=== PATIENT | male | born 1950 | race Two or more races ===

== ENCOUNTER 2025-02-24 09:43 | Observation (INO) | payer OTHER, MEDICAID ==
[~2025-02-24] VITALS: Ht 172.7 cm; Wt 90.6 kg
--- NOTE | 2025-02-24 10:07 | ED.PDOC ---
GI ASSESSMENT HPI Comments This is a 74 year old male presenting to the ED with chief complaint of GI bleeding. Patient reports that he had a large amount of dark red blood passed after having a bowel movement this morning. Patient denies any abdominal pain, fever, chills, dizziness, N/V/D, or chest pain. Chief Complaint: GI Bleed Time Seen by MD: 10:06 Reviewed Notes: Nurses Notes, Medications, Allergies Allergies: Coded Allergies: Rofecoxib (Verified Allergy, Unknown, 02/24/25) Information Source: Patient Mode of Arrival: Ambulatory Timing: Hours Duration: Since onset Prehospital treatment: None Quality: None Vomitus: None Stool: Blood Streaked Severity: Moderate Recent: None Recent Hx of: None Pain Location: None Modifying Factors: Nothing Associated sign and symptoms: Blood in Stool Past Medical History PAST MEDICAL HISTORY: HTN Surgical History: Appendectomy Family History Family History: Reviewed,noncontributory to illness Social History Smoker: Non-Smoker Alcohol: Denies ETOH Use Drugs: Denies Drug Use Lives In: Home Constitutional: denies: chills, diaphoresis, fatigue, fever, malaise, sweats, weakness, others EENTM: denies: blurred vision, double vision, ear bleeding, ear discharge, ear drainage, ear pain, ear ringing, eye pain, eye redness, hearing loss, mouth pain, mouth swelling, nasal discharge, nose bleeding, nose congestion, nose pain, photophobia, tearing, throat pain, throat swelling, voice changes, others Respiratory: denies: cough, hemoptysis, orthopnea, SOB at rest, shortness of breath, SOB with excertion, stridor, wheezing, others Cardiovascular: denies: chest pain, dizzy spells, diaphoresis, Dyspnea on exertion, edema, irregular heart beat, left arm pain, lightheadedness, palpitations, PND, syncope, others Gastrointestinal: reports: blood streaked bowels; denies: abdomen distended, abdominal pain, constipated, diarrhea, dysphagia, difficulty swallowing, hematemesis, melena, nausea, poor appetite, poor fluid intake, rectal bleeding, rectal pain, vomiting, others Genitourinary: denies: burning, dysuria, flank pain, frequency, hematuria, incontinence, penile discharge, penile sore, pain, testicle pain, testicle swelling, urgency, others Neurological: denies: dizziness, fainting, headache, left sided numbness, left sided weakness, numbness, paresthesia, pre-existing deficit, right sided numbness, right sided weakness, seizure, speech problems, tingling, tremors, weakness, others Musculoskeletal: denies: back pain, gout, joint pain, joint swelling, muscle pain, muscle stiffness, neck pain, others Integumetry: denies: bruises, change in color, change in hair/nails, dryness, laceration, lesions, lumps, rash, wounds, others Allergic/Immunocompromised: denies: Difficulty Healing, Frequent Infections, Hives, Itching, others Hematologic/Lymphatic: denies: anemia, blood clots, easy bleeding, easy bruising, swollen glands, others Endocrine: denies: excessive hunger, excessive sweating, excessive thirst, excessive urination, flushing, intolerance to cold, intolerance to heat, unexplained weight gain, unexplained weight loss, others Psychiatric: denies: anxiety, bipolar disorder, depression, hopeless, panic disorder, schizophrenia, sleepless, suicidal, others All Other Systems: Reviewed and Negative Physical Exam General Appearance: Moderate Distress, Normal HEENT: Normal ENT Inspection, Pharynx Normal, TMs Normal Neck: Full Range of Motion, Non-Tender, Normal, Normal Inspection Respiratory: Chest Non-Tender, Lungs Clear, No Accessory Muscle Use, No Respiratory Distress, Normal Breath Sounds Cardiovascular: No Edema, No JVD, No Murmur, No Gallop, Normal Peripheral Pulses, Regular Rate/Rhythm Breast Exam: Deferred Gastrointestinal: No Organomegaly, Non Tender, No Pulsatile Mass, Normal Bowel Sounds, Soft Genitalia: Deferred Pelvic: Deferred Rectal: Deferred Extremities: No calf tenderness, Normal capillary refill, Normal inspection, Normal range of motion, Non-tender, No pedal edema Musculoskeletal : Apperance: Normal 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 Was a procedure done?: No GI differential Dx Differential Diagnosis: Constipation, Diverticular disease, Esophagitis, Gastritis/PUD, Gastroenteritis X-Ray, Labs, Meds, VS Vital Signs Date Time Temp Pulse Resp B/P (MAP) Pulse Ox O2 Delivery O2 Flow Rate FiO2 02/24/25 13:28 106 16 95 Room Air* 0 21 02/24/25 13:28 106 16 120/74 (89) 95 02/24/25 10:07 105 02/24/25 09:51 105 02/24/25 09:44 98.9 104 18 125/80 96 98.9 Lab Test 02/24/25 10:45 Range/Units White Blood Count 6.4 4.4-10.8 10^3/uL Red Blood Count 4.25 L 4.5-5.90 10^6/uL Hemoglobin 13.9 13.5-17.5 g/dL Hematocrit 39.0 L 41.0-53.0 % Mean Corpuscular Volume 91.7 80.0-100.0 fL Mean Corpuscular Hemoglobin 32.6 H 28.0-32.0 pg Mean Corpuscular Hemoglobin Concent 35.5 32.0-36.0 g/dL Red Cell Distribution Width 13.0 11.8-14.3 % Platelet Count 227 140-450 10^3/uL Mean Platelet Volume 7.9 6.9-10.8 fL Neutrophils (%) (Auto) 71.3 37.0-80.0 % Lymphocytes (%) (Auto) 18.9 10.0-50.0 % Monocytes (%) (Auto) 8.5 0.0-12.0 % Eosinophils (%) (Auto) 0.6 0.0-7.0 % Basophils (%) (Auto) 0.7 0.0-2.0 % Neutrophils # (Auto) 4.6 1.6-8.6 10 ^3/uL Lymphocytes # (Auto) 1.2 0.4-5.4 10 ^3/uL Monocytes # (Auto) 0.5 0-1.3 10 ^3/uL Eosinophils # (Auto) 0 0-0.8 10 ^3/uL Basophils # (Auto) 0 0-0.2 10 ^3/uL Nucleated Red Blood Cells 0.1 % Sodium Level 142 136-145 mmol/L Potassium Level 3.0 L 3.5-5.1 mmol/L Chloride Level 106 98-107 mmol/L Carbon Dioxide Level 27 20-31 mmol/L Anion Gap 9 5-15 Blood Urea Nitrogen 10 9-23 mg/dL Creatinine 0.76 0.700-1.30 mg/dL Glomerular Filtration Rate Calc 95 >90 mL/min BUN/Creatinine Ratio 13.2 10.0-20.0 Serum Glucose 108 H 74-106 mg/dL Calcium Level 8.9 8.7-10.4 mg/dL Troponin I High Sensitivity 5 </=54 ng/L Current Medications Medications (Trade) Dose Ordered Sig/Isabel Route Start Time Stop Time Status Last Admin Potassium Bicarbonate (Klor-Con/Ef) 50 meq ONCE ONCE PO 02/24/25 12:30 02/24/25 12:32 DC 02/24/25 13:24 Patient alert. Complaining of blood per rectum. Vitals stable. Answering all questions. Hemoglobin within normal limits. He is tachycardic. Denies use of blood thinners. Potassium low. Was given potassium. Establish intravenous access. Was given fluids. Continue monitoring. Patient was authorized to be admitted in this hospital. Time of 1ST Reevaluation: 11:05 Reevaluation 1ST: Unchanged Patient Education/Counseling: Diagnosis, Treatment Family Education/Counseling: No Family Present SEPSIS Sepsis Screen Date sepsis recognized/suspect: Feb 24, 2025 Time Sepsis recognized/suspect: 944 Recent Procedure: No On Antibiotic Therapy: No Respiratory Rate >20: No Heart Rate >90: Yes Temp<36 C (96.8 F) or >38.3 C: No SBP <90 or MAP <65 mmHG: No New Acute Mental Status Change: No Is the patient on CPAP, BIPAP,: No Physician Orders Urinalysis (02/24/25 10:29) Ct Ab Pel Wo Con-No Oral Or Iv (02/24/25 12:23) Vital Signs Date Time Temp Pulse Resp B/P (MAP) Pulse Ox O2 Delivery O2 Flow Rate FiO2 02/24/25 13:28 106 16 95 Room Air* 0 21 02/24/25 13:28 106 16 120/74 (89) 95 02/24/25 10:07 105 02/24/25 09:51 105 02/24/25 09:44 98.9 104 18 125/80 96 98.9 Laboratory Tests Test 02/24/25 10:45 White Blood Count 6.4 10^3/uL (4.4-10.8) Medications Medications Dose Ordered Sig/Isabel Route Start Time Stop Time Status Last Admin Dose Admin Potassium Bicarbonate 50 meq ONCE ONCE PO 02/24/25 12:30 02/24/25 12:32 DC 02/24/25 13:24 Departure 1 Departure Time of Disposition: 12:22 Impression: Primary Impression: GI bleed Qualified Codes: K92.2 - Gastrointestinal hemorrhage, unspecified Disposition: ADMITTED INPATIENT Admit to: Med Surg Condition: Guarded Critical Care Note Critical Care Time?: No Stability Stability form required: No Heart Score Heart Score: Heart Score Response (Comments) Value History Slightly Suspicious 0 EKG Normal 0 Age >65 2 Risk Factors >3 or Hx ASHD 2 Troponin Normal limit 0 Total 4 I personally scribed for SHAHZAD WOODSON MD ([email or web address]) on 02/24/25 at 10:07. Electronically submitted by Krystian Tovar ([email or web address]). SHAHZAD WOODSON MD Feb 24, 2025 10:07
[2025-02-24 11:21] LABS: Hematocrit 39.0 % (41.0-53.0); Hemoglobin 13.9 g/dL (13.5-17.5); Mean Corpuscular Hemoglobin 32.6 pg (28.0-32.0); Mean Corpuscular Volume 91.7 fL (80.0-100.0); Nucleated Red Blood Cells % 0.1 %
[2025-02-24 11:30] LABS: Anion Gap 9 (5-15); Carbon Dioxide 27 mmol/L (20-31); Chloride 106 mmol/L (98-107); Potassium 3.0 mmol/L (3.5-5.1); Sodium 142 mmol/L (136-145)
[2025-02-24 11:31] LABS: Calcium 8.9 mg/dL (8.7-10.4)
[2025-02-24 11:36] LABS: BUN/Creatinine Ratio 13.2 (10.0-20.0); Blood Urea Nitrogen 10 mg/dL (9-23)
[2025-02-24 11:37] LABS: Glucose 108 mg/dL (74-106)
--- NOTE | 2025-02-24 13:04 | ECG ---
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
--- NOTE | 2025-02-24 13:08 | DVH ---
Indication: gibleed Technique: CT axial images of the abdomen and pelvis are obtained without contrast. Coronal and sagit keisha reformats were obtained. Radiation Dose Information: CTDI volume is 17.2 mGy. Dose-length product is 897.86 mGy*cm Comparison: None FINDINGS: There is limited interpretation of the abdomen and pelvis without administration of intravenous contr ast. Lung bases demonstrate no pleural effusion. Adrenal glands, spleen, pancreas unremarkable in shape. Cholelithiasis. Liver unremarkable in shape . No hydronephrosis/ nephrolithiasis. Stomach is partially distended. Small bowel loops normal in caliber. Colonic diverticular disease. Mild stranding surrounding the sigmoid colon diverticula. No secondary signs for appendicitis. Abdominal aortic atherosclerotic disease. Bladder partially distended. No free pelvic fluid. No ingu inal lymphadenopathy. Moderate bilateral sacroiliac degenerative joint disease. Moderate thoracolumbar degenerative disc di sease. IMPRESSION: Limited evaluation without contrast. Mild diverticulitis of the sigmoid colon. Cholelithiasis. Atherosclerotic disease. Other findings as described
[2025-02-24] MEDS: POTASSIUM EFFERVESENT TAB 25 MEQ PO ONE (13:24)
[2025-02-24 13:28] VITALS: PULSE 106; RESP 16; O2SAT 95
[2025-02-24] MEDS ORDERED: HYDROcodone-ACET 5/325MG TAB PO PRN (14:45)
[2025-02-24] MEDS ORDERED: ACETAMINOPHEN 325 MG TAB PO PRN (14:45)
[2025-02-24] MEDS ORDERED: ONDANSETRON HCL 4 MG/2 ML VIAL IV PRN (14:45)
[2025-02-24] MEDS ORDERED: MORPHINE SULFATE INJ 2 MG/ml SYRG IV PRN (14:45)
--- NOTE | 2025-02-24 14:49 | DVHHP2 ---
Admitting Diagnosis: GI Bleed History of Present Illness 74 year old male is complaining of GI bleed that he noticed this morning after a bowel movement. While in the emergency department the patient was evaluated by the provider. Patient will be admitted for further evaluation and treatment. I discussed admission with the patient/family and is in agreement to treatment plan. Allergies: Coded Allergies: Rofecoxib (Verified Allergy, Unknown, 02/24/25) Current Medications Current Medications Medications (Trade) Dose Ordered Sig/Isabel Route PRN Reason Start Time Stop Time Status Last Admin Metronidazole 100 ml @ 100 mls/hr Q8HR IV 02/24/25 22:00 02/25/25 14:00 Levofloxacin/ Dextrose 100 ml @ 100 mls/hr DAILY IV 02/24/25 18:15 02/25/25 09:16 Review of Systems GI bleed Vital Signs Vital Signs Date Time Temp Pulse Resp B/P (MAP) Pulse Ox O2 Delivery O2 Flow Rate FiO2 02/25/25 12:05 97.4 74 17 130/75 (93) 98 97.4 02/25/25 08:00 Room Air* 0 21 Physical Exam General Appearance: alert, no distress HEENT: EOMI, PERRLA, normal external inspect of ears, no icterus, no nasal drainage Neck: no carotid bruit, no jugular venous distention (JVD), no lymphadenopathy Chest: normal thorax Respiratory: clear to auscultation, normal air movement Cardiovascular: regular rate and rhythm, no diastolic murmur, no jugular venous distention (JVD), no rub, no systolic murmur Abdominal: soft, no hepatomegaly, no mass, no splenomegaly, no tenderness Musculoskeletal: no joint tenderness, no swelling Extremities: normal pulses, no calf tenderness, no clubbing, no cyanosis, no edema Skin: no bruising, no jaundice, no rash Neurological: alert, No focal deficit SEPSIS Sepsis Screen Date sepsis recognized/suspect: Feb 24, 2025 Time Sepsis recognized/suspect: 944 Recent Procedure: No On Antibiotic Therapy: No Respiratory Rate >20: No Heart Rate >90: Yes Temp<36 C (96.8 F) or >38.3 C: No SBP <90 or MAP <65 mmHG: No New Acute Mental Status Change: No Is the patient on CPAP, BIPAP,: No Physician Orders Ct Ab Pel Wo Con-No Oral Or Iv (02/24/25 12:23) Admit (02/24/25 14:44) Code Status (02/24/25 14:44) Sodium Chloride 0.9% (02/24/25 14:45) Hydrocodone-Acet 5/325mg Tab ([place] 32 (02/24/25 14:45) Ondansetron Hcl (Zofran) (02/24/25 14:45) Condition: Fair (02/24/25 14:44) Acetaminophen Tablet (Tylenol Tablet) (02/24/25 14:45) Clear Liq Diet (02/24/25 Dinner) Morphine Sulfate Injection (02/24/25 14:45) Sequential Compression Device (02/24/25 ) *Consult Dr. Patience Ferraro (02/24/25 14:58) Pantoprazole (Protonix) (02/24/25 15:00) Stool Wbc (02/24/25 15:42) Stool Occult Blood (02/24/25 15:42) Stool Bacterial Culture (02/24/25 15:42) Clostridium Difficile Toxin (02/24/25 15:42) Metronidazole 500mg/100ml (Flagyl 500mg/ (02/24/25 22:00) Levofloxacin 500mg (Levaquin 500mg/ 100m (02/24/25 18:15) Vital Signs Date Time Temp Pulse Resp B/P (MAP) Pulse Ox O2 Delivery O2 Flow Rate FiO2 02/25/25 12:05 97.4 74 17 130/75 (93) 98 97.4 02/25/25 08:10 97.7 68 17 131/63 (85) 96 97.7 02/25/25 08:00 Room Air* 0 21 02/25/25 05:00 98.1 84 18 138/88 (105) 98 98.1 02/24/25 21:00 97.6 76 18 140/80 (100) 95 97.6 02/24/25 20:00 16 Room Air* 0 21 02/24/25 19:08 98.6 69 127/79 (95) 98 98.6 02/24/25 18:33 97.8 69 18 126/70 (88) 95 97.8 02/24/25 18:32 Room Air* 0 21 02/24/25 17:57 83 16 135/76 (95) 98 02/24/25 13:28 106 16 95 Room Air* 0 21 02/24/25 13:28 106 16 120/74 (89) 95 02/24/25 10:07 105 02/24/25 09:51 105 02/24/25 09:44 98.9 104 18 125/80 96 98.9 Laboratory Tests Test 02/24/25 10:45 02/25/25 05:48 White Blood Count 6.4 10^3/uL (4.4-10.8) 5.7 10^3/uL (4.4-10.8) Results Labs Test 02/25/25 09:15 02/25/25 05:48 02/24/25 10:45 Range/Units Urine Color Light-yellow Yellow Urine Clarity Clear Clear Urine pH 8.0 5.0-9.0 Urine Specific [place] 1.014 1.001-1.035 Urine Protein Negative Negative Urine Ketones 1+ H Negative Urine Blood Negative Negative /uL Urine Nitrite Negative Negative Urine Bilirubin Negative Negative Urine Urobilinogen Normal Negative mg/dL Urine Leukocyte Esterase Negative Negative /uL Urine RBC 1 0 - 3 /hpf Urine Microscopic WBC < 1 0-3 /HPF Urine Squamous Epithelial Cells None seen <5 /hpf Urine Bacteria None seen None Seen /hpf Urine Glucose Normal Normal mg/dL White Blood Count 5.7 4.4-10.8 10^3/uL Red Blood Count 4.14 L 4.5-5.90 10^6/uL Hemoglobin 13.7 13.5-17.5 g/dL Hematocrit 38.4 L 41.0-53.0 % Mean Corpuscular Volume 92.7 80.0-100.0 fL Mean Corpuscular Hemoglobin 33.0 H 28.0-32.0 pg Mean Corpuscular Hemoglobin Concent 35.6 32.0-36.0 g/dL Red Cell Distribution Width 13.0 11.8-14.3 % Platelet Count 220 140-450 10^3/uL Mean Platelet Volume 7.9 6.9-10.8 fL Neutrophils (%) (Auto) 64.4 37.0-80.0 % Lymphocytes (%) (Auto) 24.8 10.0-50.0 % Monocytes (%) (Auto) 9.2 0.0-12.0 % Eosinophils (%) (Auto) 1.2 0.0-7.0 % Basophils (%) (Auto) 0.4 0.0-2.0 % Neutrophils # (Auto) 3.7 1.6-8.6 10 ^3/uL Lymphocytes # (Auto) 1.4 0.4-5.4 10 ^3/uL Monocytes # (Auto) 0.5 0-1.3 10 ^3/uL Eosinophils # (Auto) 0.1 0-0.8 10 ^3/uL Basophils # (Auto) 0 0-0.2 10 ^3/uL Nucleated Red Blood Cells 0.2 % Sodium Level 143 136-145 mmol/L Potassium Level 3.7 3.5-5.1 mmol/L Chloride Level 106 98-107 mmol/L Carbon Dioxide Level 28 20-31 mmol/L Anion Gap 9 5-15 Blood Urea Nitrogen 9 9-23 mg/dL Creatinine 0.71 0.700-1.30 mg/dL Glomerular Filtration Rate Calc 97 >90 mL/min BUN/Creatinine Ratio 12.7 10.0-20.0 Serum Glucose 94 74-106 mg/dL Calcium Level 8.9 8.7-10.4 mg/dL Total Bilirubin 0.7 0.2-1.0 mg/dL Aspartate Amino Transferase (AST) 21 13-40 U/L Alanine Aminotransferase (ALT) 26 7-40 U/L Alkaline Phosphatase 57 46-116 U/L Total Protein 6.3 5.7-8.2 g/dL Albumin 4.0 3.2-4.8 g/dL Troponin I High Sensitivity 5 </=54 ng/L Primary Diagnosis -GI bleed related to excessive Motrin use GI consult, no NSAID, monitoring -Sigmoid diverticulitis GI consult, IV fluids, antibiotic, monitoring - Obesity Diet, exercise Plan discussed with: Patient, Other MARIAMA HENRY NP Feb 24, 2025 14:49
[2025-02-24] MEDS: SODIUM CHLORIDE 0.9% 1,000 ML IV SCH (15:51)
--- NOTE | 2025-02-24 15:58 | DVHCONRES ---
Date Seen: Feb 24, 2025 Resident Creating Document: JEANIE MARTINEZ RESIDENT Reason for Consultation GI bleed History of Present Illness Patient is a 74-year-old male with past medical history of CVA, hypertension, dyslipidemia, who comes in due to bloody bowel movements. According to the patient, today on 02/24/2025 in the morning he went to the bathroom noted to have some diarrhea, on wiping he noticed blood on the tissue paper and toilet bowl filled with dark red blood. He further had 3 similar episodes of bloody diarrhea throughout the day. Denies having similar symptoms in the past. Patient notes he takes ibuprofen 1200 mg daily for various orthopedic related pain. Hemoglobin and hematocrit 13.[address] abdomen pelvis showed mild diverticulitis of the sigmoid colon. Cholelithiasis. Atherosclerotic disease. Past Medical History CVA, hypertension, dyslipidemia, Past Surgical History Left lower extremity surgery (ankle, foot), bilateral wrist surgery, knee replacement surgery, appendectomy, neck fusion surgery x2 Social History Smoking: Quit 20 years ago, prior to that 1 pack per day for 40 years Alcohol: Denies Drugs: Remote history of methamphetamine abuse. Allergies: Coded Allergies: Rofecoxib (Verified Allergy, Unknown, 02/24/25) Current Medications Current Medications Medications (Trade) Dose Ordered Sig/Isabel Route PRN Reason Start Time Stop Time Status Last Admin Sodium Chloride 1,000 ml @ 60 mls/hr [id number] IV 02/24/25 14:45 UNV Acetaminophen/ Hydrocodone Bitart ([place] 5/325MG Tab) 1 tab Q4HP PRN PO MODERATE PAIN (4-6 PAIN SCALE) 02/24/25 14:45 UNV Ondansetron HCl (Zofran) 4 mg Q4HP PRN IV NAUSEA / VOMITING 02/24/25 14:45 UNV Acetaminophen (Tylenol Tablet) 650 mg Q6HP PRN PO PAIN SCALE 1-3 OR TEMP>100.4 02/24/25 14:45 UNV Morphine Sulfate 2 mg Q4HPRN PRN IV SEVERE PAIN (7-10 PAIN SCALE) 02/24/25 14:45 UNV Pantoprazole Sodium (Protonix) 40 mg DAILY IV 02/24/25 15:00 UNV Review of Systems Eyes: No Pain, No Vision change, No Conjunctivae inflammation, No Eyelid inflammation, No Other, No Redness ENT: No Ear pain, No Ear discharge, No Nose pain, No Nose discharge, No Nose congestion, No Mouth pain, No Mouth swelling, No Throat pain, No Throat swelling, No Other Cardiovascular: No Chest Pain, No Palpitations, No Orthopnea, No Paroxysmal No Dyspnea, No Edema, No Lt Headedness, No Other Respiratory: No Cough, No Dry, No Shortness of breath, No SOB with exertion, No Wheezing, No Hemoptysis, No Pleuritic Pain, No Sputum, No Other Gastrointestinal: No Nausea, No Vomiting, No Abdominal Pain, Diarrhea, No Constipation, No Melena, Hematochezia, No Other Genitourinary: No Dysuria, No Frequency, No Incontinence, No Hematuria, No Retention, No Other Musculoskeletal: No other, No neck pain, No shoulder pain, No arm pain, No back pain, No hand pain, No leg pain, No foot pain Skin: No Rash, No Lesions, No Jaundice, No Bruising, No Other Vital Signs Vital Signs Date Time Temp Pulse Resp B/P (MAP) Pulse Ox O2 Delivery O2 Flow Rate FiO2 02/24/25 13:28 106 16 95 Room Air* 0 21 02/24/25 13:28 120/74 (89) 02/24/25 09:44 98.9 98.9 Physical Exam General Appearance: Cooperative. Well developed. Well nourished. NAD Pulmonary/Respiratory: Chest non-tender. Equal bilateral air entry Cardiovascular/Chest: Regular rate and rhythm. Abdominal Exam: Normal bowel sounds. Soft. normal abdomen, no visible veins, Nontender. No hepatospenomegaly. No masses Neuro/Mental Status: A&O x4. Coherent. Thoughts/Psych: Normal thought pattern. Appropriate mood and affect. Good judgement and insight Skin Exam: Normal inspection. Normal color. Warm. Dry Labs/Diagnostic Data Labs Test 02/24/25 10:45 Range/Units White Blood Count 6.4 4.4-10.8 10^3/uL Red Blood Count 4.25 L 4.5-5.90 10^6/uL Hemoglobin 13.9 13.5-17.5 g/dL Hematocrit 39.0 L 41.0-53.0 % Mean Corpuscular Volume 91.7 80.0-100.0 fL Mean Corpuscular Hemoglobin 32.6 H 28.0-32.0 pg Mean Corpuscular Hemoglobin Concent 35.5 32.0-36.0 g/dL Red Cell Distribution Width 13.0 11.8-14.3 % Platelet Count 227 140-450 10^3/uL Mean Platelet Volume 7.9 6.9-10.8 fL Neutrophils (%) (Auto) 71.3 37.0-80.0 % Lymphocytes (%) (Auto) 18.9 10.0-50.0 % Monocytes (%) (Auto) 8.5 0.0-12.0 % Eosinophils (%) (Auto) 0.6 0.0-7.0 % Basophils (%) (Auto) 0.7 0.0-2.0 % Neutrophils # (Auto) 4.6 1.6-8.6 10 ^3/uL Lymphocytes # (Auto) 1.2 0.4-5.4 10 ^3/uL Monocytes # (Auto) 0.5 0-1.3 10 ^3/uL Eosinophils # (Auto) 0 0-0.8 10 ^3/uL Basophils # (Auto) 0 0-0.2 10 ^3/uL Nucleated Red Blood Cells 0.1 % Sodium Level 142 136-145 mmol/L Potassium Level 3.0 L 3.5-5.1 mmol/L Chloride Level 106 98-107 mmol/L Carbon Dioxide Level 27 20-31 mmol/L Anion Gap 9 5-15 Blood Urea Nitrogen 10 9-23 mg/dL Creatinine 0.76 0.700-1.30 mg/dL Glomerular Filtration Rate Calc 95 >90 mL/min BUN/Creatinine Ratio 13.2 10.0-20.0 Serum Glucose 108 H 74-106 mg/dL Calcium Level 8.9 8.7-10.4 mg/dL Troponin I High Sensitivity 5 </=54 ng/L Assessment Acute sigmoid diverticulitis Lower GI bleeding Cholelithiasis Hypokalemia Plan: Stool C diff Stool WBC, stool occult blood, stool bacterial culture IV metronidazole Q 8 hours IV Protonix Monitor H&H IV hydration Clear liquid diet Thank you so much for the opportunity to consult on your patient. GI team will follow the patient. In case of any questions or concerns please feel free to reach out. Plan discussed with Dr. Ferraro Plan discussed with: Patient, Spouse, Other (RN) JEANIE MARTINEZ RESIDENT Feb 24, 2025 15:58
[2025-02-24] MEDS: PANTOPRAZOLE 40 MG/10 ML VIAL INJ IV SCH (18:13)
[2025-02-24 18:33] VITALS: BP 126/70; PULSE 69; RESP 18; TEMP 97.8; O2SAT 95
[2025-02-24 19:08] VITALS: BP 127/79; PULSE 69; TEMP 98.6; O2SAT 98
[2025-02-24 20:00] VITALS: RESP 16
[2025-02-24 21:00] VITALS: BP 140/80; PULSE 76; RESP 18; TEMP 97.6; O2SAT 95
[2025-02-25 05:00] VITALS: BP 138/88; PULSE 84; RESP 18; TEMP 98.1; O2SAT 98
[2025-02-25 07:08] LABS: Alanine Aminotransferase 26 U/L (7-40); Alkaline Phosphatase 57 U/L (46-116); Anion Gap 9 (5-15); BUN/Creatinine Ratio 12.7 (10.0-20.0); Calcium 8.9 mg/dL (8.7-10.4); Carbon Dioxide 28 mmol/L (20-31); Chloride 106 mmol/L (98-107); Glucose 94 mg/dL (74-106); Potassium 3.7 mmol/L (3.5-5.1); Sodium 143 mmol/L (136-145)
[2025-02-25 07:09] LABS: Total Protein 6.3 g/dL (5.7-8.2)
[2025-02-25 07:10] LABS: Albumin 4.0 g/dL (3.2-4.8); Bilirubin, Total 0.7 mg/dL (0.2-1.0)
[2025-02-25 07:21] LABS: Hematocrit 38.4 % (41.0-53.0); Hemoglobin 13.7 g/dL (13.5-17.5); Mean Corpuscular Hemoglobin 33.0 pg (28.0-32.0); Mean Corpuscular Volume 92.7 fL (80.0-100.0); Nucleated Red Blood Cells % 0.2 %
[2025-02-25 07:27] LABS: Blood Urea Nitrogen 9 mg/dL (9-23)
[2025-02-25 08:10] VITALS: BP 131/63; PULSE 68; RESP 17; TEMP 97.7; O2SAT 96
--- NOTE | 2025-02-25 09:34 | DVHPN2 ---
Progress Note Date Seen: Feb 25, 2025 Resident Creating Document: JEANIE MARTINEZ RESIDENT Medical Necessity Reason Pt with a Central, PICC or Fol: No Subjective Review of Systems Patient seen and examined at bedside One bloody bowel movement this a.m. Tolerating diet without any nausea or vomiting Denies any abdominal pain Objective vital signs Vital Sign Date Time Temp Pulse Resp B/P (MAP) Pulse Ox O2 Delivery O2 Flow Rate FiO2 02/25/25 08:10 97.7 68 17 131/63 (85) 96 97.7 02/25/25 08:00 Room Air* 0 21 Total Intake and Output 02/24/25 02/24/25 02/25/25 15:00 23:00 07:00 Intake Total 1240 ml Output Total 1350 ml Balance -110 ml medications Current Medications Medications Dose Ordered Sig/Isabel Route Start Time Stop Time Status Last Admin Dose Admin Sodium Chloride 1,000 ml @ 60 mls/hr [id number] IV 02/24/25 14:45 02/25/25 05:57 60 MLS/HR Acetaminophen/ Hydrocodone Bitart 1 tab Q4HP PRN PO 02/24/25 14:45 Ondansetron HCl 4 mg Q4HP PRN IV 02/24/25 14:45 Acetaminophen 650 mg Q6HP PRN PO 02/24/25 14:45 Morphine Sulfate 2 mg Q4HPRN PRN IV 02/24/25 14:45 Pantoprazole Sodium 40 mg DAILY IV 02/24/25 15:00 02/25/25 09:17 40 MG Metronidazole 100 ml @ 100 mls/hr Q8HR IV 02/24/25 22:00 02/25/25 05:54 100 MLS/HR Levofloxacin/ Dextrose 100 ml @ 100 mls/hr DAILY IV 02/24/25 18:15 02/25/25 09:16 100 MLS/HR Examination General Appearance: Cooperative. Well developed. Well nourished. NAD Pulmonary/Respiratory: Chest non-tender. Equal bilateral air entry Cardiovascular/Chest: Regular rate and rhythm. Abdominal Exam: Normal bowel sounds. Soft. normal abdomen, no visible veins, Nontender. No hepatospenomegaly. No masses Neuro/Mental Status: A&O x4. Coherent. Thoughts/Psych: Normal thought pattern. Appropriate mood and affect. Good judgement and insight Skin Exam: Normal inspection. Normal color. Warm. Dry laboratory and microbiology Laboratory Tests 02/25/25 05:48 Test 02/25/25 05:48 Range/Units Serum Glucose 94 74-106 mg/dL Labs and/or images reviewed: Labs reviewed by me, Image(s) reviewed by me Problem List/Assessment/Plan Problem List/Assessment/Plan Acute sigmoid diverticulitis Lower GI bleeding Cholelithiasis Hypokalemia Plan: Stool C diff Stool WBC, stool occult blood, stool bacterial culture IV metronidazole Q 8 hours IV Protonix Monitor H&H IV hydration Clear liquid diet Thank you so much for the opportunity to consult on your patient. GI team will follow the patient. In case of any questions or concerns please feel free to reach out. Plan discussed with Dr. Ferraro Plan discussed with: Patient, Other (RN) JEANIE MARTINEZ RESIDENT Feb 25, 2025 09:34
--- NOTE | 2025-02-25 09:52 | DVHPN2 ---
Progress Note - Dictate Date Seen: Feb 25, 2025 Medical Necessity Reason Pt with a Central, PICC or Fol: No vital signs Vital Sign Date Time Temp Pulse Resp B/P (MAP) Pulse Ox O2 Delivery O2 Flow Rate FiO2 02/25/25 08:10 97.7 68 17 131/63 (85) 96 97.7 02/25/25 08:00 Room Air* 0 21 Total Intake and Output 02/24/25 02/24/25 02/25/25 15:00 23:00 07:00 Intake Total 1240 ml Output Total 1350 ml Balance -110 ml medications Current Medications Medications Dose Ordered Sig/Isabel Route Start Time Stop Time Status Last Admin Dose Admin Sodium Chloride 1,000 ml @ 60 mls/hr [id number] IV 02/24/25 14:45 02/25/25 05:57 60 MLS/HR Acetaminophen/ Hydrocodone Bitart 1 tab Q4HP PRN PO 02/24/25 14:45 Ondansetron HCl 4 mg Q4HP PRN IV 02/24/25 14:45 Acetaminophen 650 mg Q6HP PRN PO 02/24/25 14:45 Morphine Sulfate 2 mg Q4HPRN PRN IV 02/24/25 14:45 Pantoprazole Sodium 40 mg DAILY IV 02/24/25 15:00 02/25/25 09:17 40 MG Metronidazole 100 ml @ 100 mls/hr Q8HR IV 02/24/25 22:00 02/25/25 05:54 100 MLS/HR Levofloxacin/ Dextrose 100 ml @ 100 mls/hr DAILY IV 02/24/25 18:15 02/25/25 09:16 100 MLS/HR objective General Appearance: alert, no distress HEENT: EOMI, PERRLA, normal external inspect of ears, no icterus, no nasal drainage Neck: no carotid bruit, no jugular venous distention (JVD), no lymphadenopathy Chest: normal thorax Respiratory: clear to auscultation, normal air movement Cardiovascular: regular rate and rhythm, no diastolic murmur, no jugular venous distention (JVD), no rub, no systolic murmur Abdominal: soft, no hepatomegaly, no mass, no splenomegaly, no tenderness Musculoskeletal: no joint tenderness, no swelling Extremities: normal pulses, no calf tenderness, no clubbing, no cyanosis, no edema Skin: no bruising, no jaundice, no rash Neurological: alert, No focal deficit laboratory and microbiology Laboratory Tests 02/25/25 05:48 Test 02/25/25 05:48 Range/Units Serum Glucose 94 74-106 mg/dL Problem List -GI bleed related to excessive Motrin use GI consult, no NSAID, monitoring -Sigmoid diverticulitis GI consult, IV fluids, antibiotic, monitoring - Obesity Diet, exercise Assessment/Plan Subjective Patient is awake and alert. Objective Patient was admitted for GI bleed. Patient apparently takes 8-10 Motrin per day. Patient also found to have mild sigmoid diverticulitis. Patient was started on IV antibiotics. GI has been consulted. Hemoglobin is relatively stable. Plan Continue PPI. Clear liquid diet. Continue antibiotics. Plan for possible discharge in a.m. Plan discussed with: Patient, Other MARIAMA HENRY NP Feb 25, 2025 09:52
[2025-02-25 10:05] LABS: Urine Protein, UAD Negative (Negative)
[2025-02-25 12:05] VITALS: BP 130/75; PULSE 74; RESP 17; TEMP 97.4; O2SAT 98
[2025-02-25 17:00] VITALS: BP 146/81; PULSE 65; RESP 18; TEMP 98.6; O2SAT 98
[2025-02-25 21:00] VITALS: BP 131/76; PULSE 71; RESP 18; TEMP 97.9; O2SAT 97
[2025-02-26 05:00] VITALS: BP 143/87; PULSE 83; RESP 19; TEMP 98.1; O2SAT 98
[2025-02-26 08:00] VITALS: PULSE 82; RESP 18; O2SAT 95
[2025-02-26 09:00] VITALS: BP 127/73; PULSE 82; RESP 18; TEMP 97.6; O2SAT 95
[2025-02-26] MEDS ORDERED: CIPR-173 PO (10:00)
[2025-02-26] MEDS ORDERED: METR-344 PO (10:00)
--- NOTE | 2025-02-26 10:00 | DVHPN2 ---
Progress Note Date Seen: Feb 26, 2025 Resident Creating Document: JEANIE MARTINEZ RESIDENT Medical Necessity Reason Pt with a Central, PICC or Fol: No Subjective Review of Systems Patient seen and examined at bedside One bowel movement in the past 24 hours, dark brown in color Reports having good appetite Tolerating diet without any further nausea or vomiting Objective vital signs Vital Sign Date Time Temp Pulse Resp B/P (MAP) Pulse Ox O2 Delivery O2 Flow Rate FiO2 02/26/25 08:00 82 18 95 Room Air* 0 21 02/26/25 05:00 98.1 143/87 (105) 98.1 Total Intake and Output 02/25/25 02/25/25 02/26/25 15:00 23:00 07:00 Intake Total 892 ml 480 ml 720 ml Output Total 200 ml Balance 892 ml 480 ml 520 ml medications Current Medications Medications Dose Ordered Sig/Isabel Route Start Time Stop Time Status Last Admin Dose Admin Sodium Chloride 1,000 ml @ 60 mls/hr [id number] IV 02/24/25 14:45 02/25/25 22:44 60 MLS/HR Acetaminophen/ Hydrocodone Bitart 1 tab Q4HP PRN PO 02/24/25 14:45 Ondansetron HCl 4 mg Q4HP PRN IV 02/24/25 14:45 Acetaminophen 650 mg Q6HP PRN PO 02/24/25 14:45 Morphine Sulfate 2 mg Q4HPRN PRN IV 02/24/25 14:45 Pantoprazole Sodium 40 mg DAILY IV 02/24/25 15:00 02/26/25 09:36 40 MG Metronidazole 100 ml @ 100 mls/hr Q8HR IV 02/24/25 22:00 02/26/25 06:50 100 MLS/HR Levofloxacin/ Dextrose 100 ml @ 100 mls/hr DAILY IV 02/24/25 18:15 02/26/25 09:41 100 MLS/HR Examination General Appearance: Cooperative. Well developed. Well nourished. NAD Pulmonary/Respiratory: Chest non-tender. Equal bilateral air entry Cardiovascular/Chest: Regular rate and rhythm. Abdominal Exam: Normal bowel sounds. Soft. normal abdomen, no visible veins, Nontender. No hepatospenomegaly. No masses Neuro/Mental Status: A&O x4. Coherent. Thoughts/Psych: Normal thought pattern. Appropriate mood and affect. Good judgement and insight Skin Exam: Normal inspection. Normal color. Warm. Dry laboratory and microbiology Laboratory Tests 02/25/25 05:48 Test 02/25/25 05:48 Range/Units Serum Glucose 94 74-106 mg/dL Labs and/or images reviewed: Labs reviewed by me, Image(s) reviewed by me Problem List/Assessment/Plan Problem List/Assessment/Plan Acute sigmoid diverticulitis Lower GI bleeding Cholelithiasis Hypokalemia Plan: Stool C diff Stool WBC, stool occult blood, stool bacterial culture IV metronidazole Q 8 hours IV Protonix Monitor H&H IV hydration Advanced to a full liquid diet Follow up with GI in the outpatient clinic for possible colonoscopy and/or endoscopy Thank you so much for the opportunity to consult on your patient. GI team will follow the patient. In case of any questions or concerns please feel free to reach out. Plan discussed with Dr. Ferraro Plan discussed with: Patient, Other (RN) JEANIE MARTINEZ RESIDENT Feb 26, 2025 10:00
--- NOTE | 2025-02-26 10:00 | DVHDS2 ---
Discharge Summary Date of Admission Feb 24, 2025 at 14:44 Date of Discharge: Feb 26, 2025 Labs/Diagnostic Data: Laboratory Results Test 02/25/25 09:15 02/25/25 05:48 02/24/25 10:45 02/24/25 04:35 Urine Color Light-yellow (Yellow) Urine Clarity Clear (Clear) Urine pH 8.0 (5.0-9.0) Urine Specific [place] 1.014 (1.001-1.035) Urine Protein Negative (Negative) Urine Ketones 1+ (Negative) Urine Blood Negative /uL (Negative) Urine Nitrite Negative (Negative) Urine Bilirubin Negative (Negative) Urine Urobilinogen Normal mg/dL (Negative) Urine Leukocyte Esterase Negative /uL (Negative) Urine RBC 1 /hpf (0 - 3) Urine Microscopic WBC < 1 /HPF (0-3) Urine Squamous Epithelial Cells None seen /hpf (<5) Urine Bacteria None seen /hpf (None Seen) Urine Glucose Normal mg/dL (Normal) White Blood Count 5.7 10^3/uL (4.4-10.8) Red Blood Count 4.14 10^6/uL (4.5-5.90) Hemoglobin 13.7 g/dL (13.5-17.5) Hematocrit 38.4 % (41.0-53.0) Mean Corpuscular Volume 92.7 fL (80.0-100.0) Mean Corpuscular Hemoglobin 33.0 pg (28.0-32.0) Mean Corpuscular Hemoglobin Concent 35.6 g/dL (32.0-36.0) Red Cell Distribution Width 13.0 % (11.8-14.3) Platelet Count 220 10^3/uL (140-450) Mean Platelet Volume 7.9 fL (6.9-10.8) Neutrophils (%) (Auto) 64.4 % (37.0-80.0) Lymphocytes (%) (Auto) 24.8 % (10.0-50.0) Monocytes (%) (Auto) 9.2 % (0.0-12.0) Eosinophils (%) (Auto) 1.2 % (0.0-7.0) Basophils (%) (Auto) 0.4 % (0.0-2.0) Neutrophils # (Auto) 3.7 10 ^3/uL (1.6-8.6) Lymphocytes # (Auto) 1.4 10 ^3/uL (0.4-5.4) Monocytes # (Auto) 0.5 10 ^3/uL (0-1.3) Eosinophils # (Auto) 0.1 10 ^3/uL (0-0.8) Basophils # (Auto) 0 10 ^3/uL (0-0.2) Nucleated Red Blood Cells 0.2 % Sodium Level 143 mmol/L (136-145) Potassium Level 3.7 mmol/L (3.5-5.1) Chloride Level 106 mmol/L (98-107) Carbon Dioxide Level 28 mmol/L (20-31) Anion Gap 9 (5-15) Blood Urea Nitrogen 9 mg/dL (9-23) Creatinine 0.71 mg/dL (0.700-1.30) Glomerular Filtration Rate Calc 97 mL/min (>90) BUN/Creatinine Ratio 12.7 (10.0-20.0) Serum Glucose 94 mg/dL (74-106) Calcium Level 8.9 mg/dL (8.7-10.4) Total Bilirubin 0.7 mg/dL (0.2-1.0) Aspartate Amino Transferase (AST) 21 U/L (13-40) Alanine Aminotransferase (ALT) 26 U/L (7-40) Alkaline Phosphatase 57 U/L (46-116) Total Protein 6.3 g/dL (5.7-8.2) Albumin 4.0 g/dL (3.2-4.8) Troponin I High Sensitivity 5 ng/L (</=54) Stool for White Cells None seen Other Laboratory Tests 02/25/25 05:48 Brief Hx & Hospital Course: The patient was admitted for a lower GI bleed, likely resulting from excessive Motrin use. During the hospital stay, the patient was also found to have sigmoid diverticulitis. The patient was evaluated and cleared by the Gastroenterology service during the admission. For the diverticulitis, the patient received intravenous antibiotics, specifically Flagyl and Levaquin, during the hospital stay. The patient's hemoglobin has remained stable, with the last recorded value at 13.7. Lower GI Bleed Assessment: Patient was admitted for a lower GI bleed, which is likely attributed to excessive Motrin use. The patient was evaluated and cleared by Gastroenterology. Hemoglobin levels have remained stable, with the last recorded value at 13.7. Plan: - Monitor hemoglobin levels - Discontinue Motrin use - Follow up with primary care provider within one week of discharge Sigmoid Diverticulitis Assessment: Patient was diagnosed with sigmoid diverticulitis during the hospital stay. Treatment with intravenous antibiotics (Flagyl and Levaquin) was initiated during hospitalization. Plan: - Discharge on oral antibiotics: - Ciprofloxacin 500 mg PO BID for 14 days - Metronidazole 500 mg PO TID for 14 days - Follow up with primary care provider within one week of discharge Condition at Discharge: Fair Final Diagnosis/Problems List -GI bleed related to excessive Motrin use -Sigmoid diverticulitis - Obesity Discharge Disposition: Home Discharge Instruct/Medications Diet: Regular Activity: No Restrictions, As Tolerated Follow Up/Referral: PCP WITHIN 1 WEEK Scheduled Ciprofloxacin Hcl (Cipro), 500 MG PO BID Metronidazole (Flagyl), 500 MG PO TID Discharge Statement: "Patient was advised to return to the ER or call 911 if any headaches, dizziness, shortness of breath, chest pain, abdominal pain, bleeding, fevers, or worsening of medical condition. Patient was counseled about treatment plan, medications, possible side effects, patientverbalized understanding. All questions were answered to the best of my ability. This discharge took greater then 30 minutes in planning, reviewing documentation, counseling the patient, and discussing with other team members." ASSESSMENT ASSESSMENT Assessment -GI bleed related to excessive Motrin use -Sigmoid diverticulitis - Obesity DARLENE HERNANDEZ Feb 26, 2025 10:00
[2025-02-26 12:48] VITALS: BP 137/80; PULSE 83; RESP 17; TEMP 97.6; O2SAT 96
== END 2025-02-26 16:00 | disposition home or self-care (01) ==
LOC: ER 09:43 → OVERFLOW 14:44 → WEST WING 14:48
PROVIDERS: ADMIT Nurse Practitioner; ATTEND Nurse Practitioner
DX: K92.2 Gastrointestinal hemorrhage, unspecified (principal); E66.9 Obesity, unspecified; I10 Essential (primary) hypertension; Z88.8 Allergy status to other drugs, medicaments and biological substances; Z68.30 Body mass index [BMI] 30.0-30.9, adult
CPT/HCPCS: 36415; 74176; 80048; 80053; 81001; 84484; 85025; 85048; 93005; 96365; 96366; 96367; 96375; 96376; 99285; G0378; J1956; J2470; J3490; J7030